=== PATIENT | female | born 1980 | race Caucasian/White ===

== ENCOUNTER 2019-04-11 13:14 | Outpatient (REF) | payer BC, SELFPAY | END 2019-04-11 13:34 | LOC: NCHCN 13:14 | PROVIDERS: PCP Internal Medicine; Visit Provider Internal Medicine | DX: R35.0 Frequency of micturition (principal) | CPT/HCPCS: 87077; 87086; 87186 ==

== ENCOUNTER 2020-01-17 18:01 | Outpatient (REF) | payer BC, SELFPAY ==
[2020-01-17 22:10] LABS: BUN 21 mg/dL (7-18)
== END 2020-01-17 18:21 ==
LOC: NCHCN 18:01
PROVIDERS: PCP Internal Medicine; Visit Provider Registered Nurse
DX: Z00.00 Encounter for general adult medical examination without abnormal findings (principal); M51.9 Unspecified thoracic, thoracolumbar and lumbosacral intervertebral disc disorder
CPT/HCPCS: 84520; 82565

== ENCOUNTER 2020-12-23 13:01 | Outpatient (REF) | payer BC, SELFPAY | END 2020-12-23 13:02 | disposition home or self-care (01) | LOC: NCHCN 13:01 | PROVIDERS: PCP Internal Medicine; Visit Provider Registered Nurse | DX: N39.0 Urinary tract infection, site not specified (principal) | CPT/HCPCS: 87077; 87086; 87186 ==

== ENCOUNTER 2021-06-14 15:42 | Outpatient (REF) | payer BC, SELFPAY | END 2021-06-14 15:43 | disposition home or self-care (01) | LOC: NCHCN 15:42 | PROVIDERS: PCP Internal Medicine; Visit Provider Internal Medicine | DX: R30.0 Dysuria (principal) | CPT/HCPCS: 87077; 87086; 87186 ==

== ENCOUNTER 2023-06-22 14:49 | Outpatient (REF) | payer BC, SELFPAY ==
[2023-06-22 21:35] LABS: HCT 43.2 % (36.0-46.0); HGB 14.3 g/dL (11.2-15.7); MCH 30.8 pg (27.0-33.0); MCHC 33.1 % (32.0-36.0); MCV 93 fL (80-95); Platelet Count 251 10^3/uL (130-400); RBC 4.64 10^6/uL (3.93-5.22); RDW 11.9 % (11.7-14.6); RDW-SD 41.1 fL; WBC 4.67 10^3/uL (4.4-10.8)
[2023-06-22 21:46] LABS: ALT 22 U/L (14-59); AST 13 U/L (15-37); Alkaline Phosphatase 44 U/L (46-116); Anion Gap 7.8 mmol/L (3-11); BUN 16 mg/dL (7-18); Bilirubin, Total 0.4 mg/dL (0.2-1.0); CO2 27.2 mmol/L (21.0-32.0); CREATININE 0.8 mg/dL (0.55-1.02); Calcium 8.9 mg/dL (8.5-10.1); Chloride 107 mmol/L (98-107); Estimated GFR 94.87 (mL/min/1.73m2); Glucose 87 mg/dL (74-106); Potassium 3.9 mmol/L (3.5-5.1); Sodium 142 mmol/L (136-145); Total Protein 7.3 g/dL (6.4-8.2)
== END 2023-06-22 14:50 | disposition home or self-care (01) ==
LOC: NCHCN 14:49
PROVIDERS: PCP Internal Medicine; Visit Provider Family Medicine
DX: Z01.812 Encounter for preprocedural laboratory examination (principal)
CPT/HCPCS: 80053; 85027

== ENCOUNTER 2023-07-26 15:26 | Outpatient (REF) | payer BC, SELFPAY | END 2023-07-26 15:27 | disposition home or self-care (01) | LOC: NCHCN 15:26 | PROVIDERS: PCP Internal Medicine; Visit Provider Physician Assistant | DX: R30.0 Dysuria (principal) | CPT/HCPCS: 87077; 87086; 87186 ==

== ENCOUNTER 2023-10-24 14:48 | Outpatient (REF) | payer BC, SELFPAY ==
--- NOTE | 2023-10-24 09:25 | PAPFT_PTH ---
PATIENT: Becka Serna LOC: [facility] U#:[id number] AGE/SX: 43/F ROOM: RE10/24/[address]: BAILEY: 1980 BED: DIS: 10/24/2023 SPEC #: [id number] RECD: 10/24/23 18:15 STATUS: SAMINA RUSSO #: [id number] BABAK: 10/24/23 09:[address]: Moraima Mora DEPT: [facility] Cytology RECD BY: Jaqueline Horner ENTERED: 10/24/23 18:15 SP TYPE: PAPFT OTHR DR: Milena Cassidy Tissues: 1 - CX/ENDOCX FOR PAP SMEARS Procedures: PAP THIN PREP/[facility] Screening HPV DNA PROBE Comments: [id number] (HPV 16 & 18/45)
[2023-10-24 14:48] LABS: HCT 41.7 % (36.0-46.0); HGB 13.7 g/dL (11.2-15.7); MCH 30.8 pg (27.0-33.0); MCHC 32.9 % (32.0-36.0); MCV 94 fL (80-95); MPV 11.3 fL (8.0-11.0); Platelet Count 233 10^3/uL (130-400); RBC 4.45 10^6/uL (3.93-5.22); RDW 12.2 % (11.7-14.6); RDW-SD 42.4 fL; WBC 5.11 10^3/uL (4.4-10.8)
[2023-10-24 15:11] LABS: Calculated LDL 124 mg/dL (<100); Cholesterol 206 mg/dL (<200); HDL Cholesterol 64 mg/dL (40-60); TSH 1.26 uIU/Ml (0.36-3.74); Triglyceride 90 mg/dL (<150)
== END 2023-10-24 14:49 | disposition home or self-care (01) ==
LOC: NCHCN 14:48
PROVIDERS: PCP Internal Medicine; Visit Provider Family Medicine
DX: Z13.220 Encounter for screening for lipoid disorders (principal); R53.83 Other fatigue
CPT/HCPCS: 80061; 85027; 88142; 84443; 87624

== ENCOUNTER 2024-12-27 14:26 | Outpatient (REF) | payer BC, SELFPAY ==
--- NOTE | 2024-12-27 08:25 | SKI_PTH ---
PATIENT: Becka Serna LOC: [facility] U#:[id number] AGE/SX: 44/F ROOM: RE12/27/[address]: BAILEY: 1980 BED: DIS: 12/27/2024 SPEC #: [id number] RECD: 12/27/24 18:04 STATUS: SAMINA RUSSO #: [id number] BABAK: 12/27/24 08:[address]: Moraima Mora DEPT: Surgical Specimen RECD BY: Jaqueline Horner ENTERED: 12/27/24 18:04 SP TYPE: DEONNA MENDOZA DR: Milena Cassidy Tissues: 1 - SKIN BIOPSY(SHAVE/PUNCH) 2 - SKIN BIOPSY(SHAVE/PUNCH) Procedures: SKIN LEVEL 4 Comments: [id number]
== END 2024-12-27 14:27 | disposition home or self-care (01) ==
LOC: NCHCN 14:26
PROVIDERS: PCP Internal Medicine; Visit Provider Family Medicine
DX: C79.51 Secondary malignant neoplasm of bone (principal); D48.5 Neoplasm of uncertain behavior of skin
CPT/HCPCS: 88305